=== PATIENT | female | born 1970 | race Caucasian/White ===

== ENCOUNTER 2017-09-03 14:47 | Emergency (ER) | payer SELFPAY ==
--- NOTE | 2017-09-03 16:07 | RAD ---
PA AND LATERAL VIEWS OF THE CHEST 09/04/17 HISTORY: Fall. Left sided chest pain. FINDINGS: The heart size is normal. The lungs are expanded without consolidation, pneumothoraces or pleural eff usions. IMPRESSION: No radiographic evidence of acute cardiopulmonary process. POS: [facility]
[2017-09-03] MEDS ORDERED: Adacel (T-DAP) 0.5 ML VIAL ONE (16:24)
[2017-09-03] MEDS ORDERED: Ibuprofen 200 MG TAB ONE (16:28)
--- NOTE | 2017-09-04 07:39 | RAD ---
THREE VIEWS OF THE LEFT WRIST 09/03/17 COMPARISON: None. HISTORY: Recent fall, pain in the wrist. FINDINGS: No widening of the scapholunate interval. No displaced fracture or evidence of dislocation is seen. IMPRESSION: No acute osseous abnormality. If symptoms persists, followup study in 7-10 days with dedicated scapho id views advised. POS: [facility]
== END 2017-09-03 16:57 | disposition home or self-care (01) ==
LOC: ERS 14:47
DX: S63.502A Unspecified sprain of left wrist, initial encounter (principal); S20.212A Contusion of left front wall of thorax, initial encounter; I11.0 Hypertensive heart disease with heart failure; I50.9 Heart failure, unspecified; E11.9 Type 2 diabetes mellitus without complications; E78.5 Hyperlipidemia, unspecified; Z87.891 Personal history of nicotine dependence; Z79.899 Other long term (current) drug therapy; Z79.84 Long term (current) use of oral hypoglycemic drugs; W18.30XA Fall on same level, unspecified, initial encounter
CPT/HCPCS: 71046; 90471; 90715

== ENCOUNTER 2017-11-09 14:29 | Outpatient (CLI) | payer SELFPAY ==
--- NOTE | 2017-11-26 12:09 | MMO ---
SCREENING MAMMOGRAPHY: 11/09/2017 HISTORY: Screening. COMPARISON: 03/16/2015 FINDINGS: The patient's mammogram is interpreted with the assistance of computer aided detection. The breast parenchyma is primarily fatty replaced. There is punctate, benign microcalcification pres ent on the left. No dominant mass, architectural distortion, or concerning microcalcification is not ed. There is a subtle area of skin thickening and increased linear parenchymal density in the superior ri ght breast on MLO imaging, unchanged. IMPRESSION: BI-RADS Category 2--Benign findings. Recommend annual screening mammography. POS: [facility]
== END 2017-11-09 14:30 | disposition home or self-care (01) ==
LOC: SCSMAMMO 14:29
PROVIDERS: ATTEND Nurse Practitioner Family
DX: Z12.31 Encounter for screening mammogram for malignant neoplasm of breast (principal)
CPT/HCPCS: 77067

== ENCOUNTER 2020-01-18 12:01 | Inpatient (IN) | payer SELFPAY ==
--- NOTE | 2020-01-18 12:44 | RAD ---
CHEST 1 VIEW: Date: 01/18/2020 INDICATION: History of chest pain. COMPARISON: Prior PA and lateral chest dated 09/03/2017. FINDINGS: Lungs are clear. Heart size is normal. No acute osseous abnormality is evident. IMPRESSION: No acute cardiopulmonary abnormality. POS: [facility]
[2020-01-18 12:56] LABS: #Basophils 0.1 thou/uL (0.0-0.2); #Eosinphils 0.2 thou/uL (0.0-0.7); #Lymphocytes 4.6 thou/uL (1.20-3.40); #Monocytes 0.9 thou/uL (0.11-0.59); #Neutrophils 4.6 thou/uL (1.40-6.50); %Basophils 1.2 % (0.0-1.0); %Eosinophils 1.9 % (0.0-10.0); %Lymphocytes 44.4 % (21.0-51.0); %Monocytes 8.4 % (0.0-10.0); %Neutrophils 44.2 % (42.0-75.0); Hemoglobin 14.5 g/dL (12.0-16.0); Mean Corpuscular HGB CONC 34.3 g/dL (32.0-36.0); Mean Corpuscular Hemoglobin 30.7 pg (27.0-31.0); Mean Corpuscular Volume 89.5 fL (78.0-98.0); Mean Platelet Volume 9.8 fL (7.4-10.4); Platelet Count 281 thou/uL (130-400); RBC Distribution Width 11.6 % (11.5-14.5); Red Blood Cell (RBC) Count 4.71 mill/uL (4.20-5.40); White Blood Cell (WBC) Count 10.4 thou/uL (4.8-10.8)
[2020-01-18] MEDS ORDERED: Nitroglycerin 0.4 MG TAB 1 EACH ONE (13:16)
[2020-01-18 14:37] LABS: CKMB 1.2 ng/mL (0-6.6)
[2020-01-18 15:06] LABS: ALT (SGPT) 25 U/L (8-55); AST (SGOT) 22 U/L (5-34); Albumin 4.8 g/dL (3.5-5.0); Alkaline Phosphatase 94 U/L (40-110); Anion Gap 21 mmol/L (10-20); BUN (Urea Nitrogen) 17 mg/dL (7.0-18.7); Bilirubin, Total 0.4 mg/dL (0.2-1.2); Calc. Creatinine Clearance 0 mL/min (70-130); Calcium 10.7 mg/dL (7.8-10.44); Carbon Dioxide 21 mmol/L (22-29); Chloride 102 mmol/L (98-107); Estimated GFR-MDRD 47; Globulin 3.2 g/dL (2.4-3.5); Glucose 216 mg/dL (70-105); Potassium 4.2 mmol/L (3.5-5.1); Sodium 140 mmol/L (136-145)
[2020-01-18] MEDS ORDERED: Aspirin Chewable 81 MG TAB ONE (15:13)
[2020-01-18] MEDS ORDERED: Nitroglycerin 2% Ointment 1 INCH/1 GM Packet ONE (15:13)
[2020-01-18] MEDS ORDERED: Dextrose 5% in Water 1,000 ML IV PRN (15:44)
[2020-01-18] MEDS ORDERED: Dextrose 50% Abboject 50 ML SYRINGE SLOW IVP PRN (15:44)
[2020-01-18] MEDS ORDERED: Calcium Carbonate 500 MG ChewTAB PO PRN (15:46)
[2020-01-18] MEDS ORDERED: Ondansetron PF 4 MG/2 ML Vial IVP PRN (15:46)
[2020-01-18] MEDS ORDERED: Ondansetron ODT 4 MG TAB PO PRN (15:46)
[2020-01-18 15:50] LABS: Troponin I 0.028 ng/mL (< 0.028)
[2020-01-18] MEDS ORDERED: Labetalol HCl 100 MG/20 ML VIAL SLOW IVP PRN (15:53)
[2020-01-18] MEDS ORDERED: cloNIDine 0.1 MG TAB PO PRN (15:53)
--- NOTE | 2020-01-18 15:56 | HP ---
PRIMARY CARE PHYSICIAN: [id number]. CHIEF COMPLAINT: Shortness of breath of 1 week with chest discomfort today. HISTORY OF PRESENT ILLNESS: The patient is a 49-year-old white female with diabetes mellitus type 2, hypertension with cardiomyopathy, presented to the emergency room with above complaints. Over the last 1 week, the patient developed gradual worsening shortness of breath to the extent that she gets short of breath on walking 2 to 3 steps. The shortness of breath was mainly present on exertion. She denies significant orthopnea or leg swelling. No paroxysmal nocturnal dyspnea reported. She denies recent travel, fever, or chills. No cough or sick contacts reported. Earlier today while she was shopping, she developed sudden onset of chest discomfort that was moderate in intensity, radiating to her left shoulder and jaw. She denies any associated nausea, vomiting, diaphoresis, palpitations, or syncope. The pain lasted for approximately 30 to 40 minutes. It resolved after nitroglycerin and aspirin in the emergency room. She is compliant with all of her medications. PAST MEDICAL HISTORY: 1. Diabetes mellitus type 2. 2. History of congestive heart failure. 3. Hypertension. 4. Moderate obesity. 5. Hyperlipidemia. PAST SURGICAL HISTORY: 1. Laparoscopic cholecystectomy. 2. I and D of the lip and back abscess. ALLERGIES: THE PATIENT IS ALLERGIC TO CODEINE. CURRENT HOME MEDICATIONS: The patient is unable to recall her medications. The family will bring accurate list of medication later today. SOCIAL HISTORY: The patient is a former smoker, quit more than 10 years ago. No alcohol or drug use. She lives with her family. FAMILY HISTORY: Positive for hypertension and diabetes in her father and congestive heart failure in her mother. REVIEW OF SYSTEMS: All other review of systems reviewed and were found negative. PHYSICAL EXAMINATION: VITAL SIGNS: In the emergency room, showed temperature 97.6, respirations 24, pulse of 82 with a blood pressure of 174/116 and O2 saturations 99% on room air. Her last blood pressure was 124/69. HEENT: Head, atraumatic and normocephalic. Sclerae anicteric. Moist mucous membranes. No oral lesion. NECK: Supple. No JVD appreciated. No carotid bruit. LUNGS: Clear to auscultation bilaterally. No wheezing, rales, or rhonchi. HEART: S1 and S2 present. Regular rate and rhythm. No rubs or gallops. No reproducible chest wall tenderness. ABDOMEN: Soft and obese. Bowel sounds present. No rebound or guarding. No costovertebral angle tenderness. EXTREMITIES: No edema or calf tenderness. NEUROLOGIC: Grossly nonfocal. Moves all 4 extremities. PSYCHIATRY: Alert, awake, and oriented x3. SKIN: Warm and dry. LYMPH NODES: No palpable lymph nodes in the neck. PERIPHERAL VASCULAR: Radial pulses were palpable bilaterally and equal. MUSCULOSKELETAL: No joint swelling or tenderness. LABORATORY FINDINGS: CBC showed WBC 10.4 with hemoglobin 14.5, hematocrit 42.2, and platelets of 281. D-dimer was negative. Chemistry showed sodium 140, potassium 4.2, chloride 102, bicarb 21, BUN 17, and creatinine 1.2. LFTs in normal range. IMAGING STUDIES: Chest x-ray by my review was negative for infiltrate or edema. EKG by my review showed sinus rhythm without significant ST-T wave changes. IMPRESSION: 1. Chest discomfort with exertional shortness of breath. 2. History of cardiomyopathy. 3. Diabetes mellitus type 2. 4. Chronic kidney disease, stage 3. 5. Hyperlipidemia. 6. Morbid obesity. 7. Former smoker. PLAN: The patient will be monitored on the telemetry unit. The patient had an echocardiogram in 2016 that showed normal left ventricular ejection fraction of 55% to 60% with normal diastolic dysfunction. There was [id number] mitral regurgitation. An echocardiogram and stress test will be obtained. The patient will be kept n.p.o. past midnight. D-dimer was negative. Radial pulses are equal bilaterally. Home medications will be verified. We will start her on sliding scale. Lifestyle modification was emphasized. Job ID: [id number]
[2020-01-18 19:28] LABS: Troponin I 0.054 ng/mL (< 0.028)
[2020-01-18 22:14] VITALS: BMI 44.4
[2020-01-18] MEDS: Carvedilol 6.25 MG TAB PO SCH (22:37)
[2020-01-18] MEDS: Famotidine 20 MG TAB PO SCH (22:37)
[2020-01-18] MEDS: Lisinopril 10 MG TAB PO SCH (22:38)
[2020-01-18] MEDS: NPH, Human Insulin Isophane 300 UNIT/3 ML VIAL SC SCH (22:40)
[2020-01-19] MEDS: Acetaminophen 325 MG TAB PO PRN ×3 (00:38→22:27)
[2020-01-19 09:13] LABS: Cardiac Risk 4.4 (Less than 4.5)
[2020-01-19 09:34] LABS: CKMB 1.5 ng/mL (0-6.6)
[2020-01-19] MEDS: Carvedilol 6.25 MG TAB PO SCH ×2 (09:52→17:11)
[2020-01-19] MEDS: Aspirin 325 mg Enteric Coated Tablet PO SCH (09:56)
[2020-01-19] MEDS: Famotidine 20 MG TAB PO SCH ×2 (09:56→21:19)
[2020-01-19] MEDS: Lisinopril 10 MG TAB PO SCH (15:12)
[2020-01-19] MEDS: NPH, Human Insulin Isophane 300 UNIT/3 ML VIAL SC SCH ×2 (15:12→21:20)
--- NOTE | 2020-01-19 15:29 | CON ---
DATE OF CONSULTATION: 01/19/2020 REASON FOR CONSULTATION: Chest pain and shortness of breath. HISTORY OF PRESENT ILLNESS: Ms. Castro is a very pleasant 49-year-old white female, who comes to the hospital for shortness of breath and chest pain. She states about a week ago, she started noticing shortness of breath with any exertion. She would climb up her regular flight of stairs, she have to stop in the middle to catch her breath. She has noticed her shortness of breath has become worse in the last few days. Yesterday, she started noticing chest tightness on top of the shortness of breath, she lays flat, she feels a lot more short of breath, she has to sit up to breathe better. She has a history of nonischemic systolic heart failure in the past. Most recent echocardiogram was done in 2015, at which point her EF was normal at 60%. She has not followed up with anyone since 2013 when she was following with Dr. [facility] as she says she lost her insurance and has been seen by [facility] in the last few years. PAST MEDICAL HISTORY: 1. Type 2 diabetes. 2. History of systolic and diastolic heart failure, nonischemic. 3. Hypertension. 4. Obesity. 5. Hyperlipidemia. SURGICAL HISTORY: 1. Laparoscopic cholecystectomy. 2. I and D for an abscess on her lip and her back. OUTPATIENT MEDICATIONS: 1. Multivitamins daily. 2. Calcium and vitamin D. 3. Carvedilol 6.25 b.i.d. 4. Atorvastatin 40 mg at bedtime. 5. Claritin. 6. Lisinopril 10 mg a day. 7. Lasix 40 mg a day. 8. Metformin 1000 mg b.i.d. 9. Pantoprazole 40 mg a day. ALLERGIES: CODEINE. SOCIAL HISTORY: Former smoker, but quit 10 years ago. No alcohol or drug use. FAMILY HISTORY: Hypertension and diabetes in father. Mother with heart failure. REVIEW OF SYSTEMS: A 12-point review of systems was done and was all negative unless stated in the history of present illness. PHYSICAL EXAMINATION: VITAL SIGNS: Temperature 97.4, pulse 76, respiratory rate 20, saturations 98% on room air, and blood pressure 113/53. GENERAL: Awake, alert, and oriented x3, in no distress. HEENT: Normocephalic and atraumatic. NECK: Supple. LUNGS: Clear. CARDIOVASCULAR: S1 and S2. No S3 or S4. No murmurs. ABDOMEN: Soft, positive bowel sounds. EXTREMITIES: Trace edema. SKIN: Warm and dry. LABORATORY DATA: Laboratory work was reviewed. CBC with a hemoglobin of 14, hematocrit of 42, white count of 10, and platelet count of 281. Coags, D-dimer was normal. Chemistry on admission, creatinine was 1.22 with GFR of 47, glucose was 216. Troponin was negative the first two and then it was indeterminate third and fourth time. Triglycerides of 227, cholesterol of 185, LDL of 98, HDL of 42. ASSESSMENT: 1. Unstable angina 2. Indeterminate troponin, up trending, likely NSTEMI. 3. History of nonischemic cardiomyopathy. PLAN: 1. Will get echo today and plan on [facility]. We spoke about risks and benefits, risks included but not limited to stroke,PA, , bleeding and need for blood transfusion, limb loss, organ loss. patient understands and verbalizes understanding of this and agrees to proceed. Conscious sedation discussed as well and agrees to this. 2. She does not seem particularly fluid overloaded. We would hold off on Lasix at this time. Thank you for letting us to participate in the care of your patient. We will follow. Job ID: [id number] [email or web address]
[2020-01-19] MEDS: Enoxaparin Sodium 40 MG/0.4 ML SYRINGE SC SCH (17:11)
[2020-01-19] MEDS: Insulin Regular 300 UNITS/3 ML VIAL SC PRN ×2 (17:12→21:22)
[2020-01-19] MEDS: Nitroglycerin 0.4 MG TAB (25 Tab Bottle) PO PRN (22:21)
[2020-01-20] MEDS: Nitroglycerin 0.4 MG TAB (25 Tab Bottle) PO PRN (05:18)
[2020-01-20] MEDS: Famotidine 20 MG TAB PO SCH ×2 (05:37→20:20)
[2020-01-20] MEDS: Acetaminophen 325 MG TAB PO PRN (05:37)
[2020-01-20] MEDS: Enoxaparin Sodium 40 MG/0.4 ML SYRINGE SC SCH (05:38)
[2020-01-20] MEDS: Lisinopril 10 MG TAB PO SCH (05:38)
[2020-01-20] MEDS: Aspirin 325 mg Enteric Coated Tablet PO SCH (05:38)
[2020-01-20] MEDS: Carvedilol 6.25 MG TAB PO SCH ×2 (05:38→17:28)
[2020-01-20] MEDS: NPH, Human Insulin Isophane 300 UNIT/3 ML VIAL SC SCH ×2 (05:38→20:20)
--- NOTE | 2020-01-20 09:01 | PDOC.HOSPP ---
- Subjective Encounter Date: 01/19/20 Encounter Time: 15:00 Subjective: Patient seen and examined for CP. SOB on mod exertion. Some CP earlier. No other complaints. No overnight events - Objective Vital Signs & Weight: Vital Signs (12 hours) Temp Pulse Resp BP BP BP Pulse Ox 01/20/20 07:11 98.0 F 70 12 114/56 L 96 01/20/20 05:38 113/60 01/20/20 04:49 96 01/20/20 03:29 97.5 F L 69 16 113/60 97 01/19/20 22:34 73 16 127/68 96 01/19/20 22:28 76 20 166/80 H 99 Weight Admit Weight 269 lb 9 oz Weight 266 lb 1.6 oz I&O: 01/19/20 01/20/20 01/21/20 06:59 06:59 06:59 Intake Total 120 1460 Output Total 1150 Balance 120 310 Result Diagrams: 01/18/20 12:20 01/18/20 12:20 Additional Labs: Accuchecks 01/20/20 01/19/20 01/19/20 05:57 20:41 16:43 POC Glucose 170 H 247 H 239 H 01/19/20 11:07 POC Glucose 143 H Microbiology 11/04/16 19:10 Venous blood - Right Arm Blood Culture - Preliminary NO GROWTH AT 48 HOURS 11/04/16 19:10 Venous blood - Left Hand Blood Culture - Preliminary NO GROWTH AT 48 HOURS Laboratory Tests 01/19/20 01/19/20 08:21 08:21 Troponin I 0.075 H Triglycerides 227 H Cholesterol 185 Radiology Reviewed by me: Yes (CXR - no infiltrate) EKG Reviewed by me: Yes (Tele SR) Hospitalist ROS - Review of Systems Respiratory: reports: SOB with excertion. denies: cough, dry, shortness of breath, hemoptysis, pleuritic pain, sputum, wheezing, other Gastrointestinal: denies: nausea, vomiting, abdominal pain, diarrhea, constipation, melena, hematochezia, other Genitourinary: denies: dysuria, frequency, incontinence, hematuria, retention, other - Medication Medications: Active Medications Generic Name Dose Route Start Last Admin Trade Name Freq PRN Reason Stop Dose Admin Acetaminophen 650 mg 01/18/20 15:46 01/20/20 05:37 Tylenol PO 650 mg Q4H PRN Administration Headache/Fever/Mild Pain (1-3) Aspirin 325 mg 01/19/20 09:00 01/20/20 05:38 Ecotrin PO 325 mg DAILY MARINE Administration Carvedilol 6.25 mg 01/19/20 17:00 01/20/20 05:38 Coreg PO 6.25 mg BID-WM MARINE Administration Enoxaparin Sodium 40 mg 01/19/20 09:00 01/20/20 05:38 Lovenox SC Not Given 0900 MARINE Famotidine 20 mg 01/18/20 21:00 01/20/20 05:37 Pepcid PO 20 mg BID MARINE Administration Insulin Human NPH 10 unit 01/18/20 21:00 01/20/20 05:38 Humulin N SC Not Given BID MARINE Insulin Human Regular 0 units 01/18/20 15:44 01/19/20 17:12 Humulin R SC 4 unit .MODERATE SLIDING SC PRN Administration Moderate Correctional Scale Insulin Human Regular 0 units 01/18/20 15:44 01/19/20 21:22 Humulin R SC 2 unit .BEDTIME SLIDING SC PRN Administration Bedtime Correctional Scale Lisinopril 10 mg 01/20/20 09:00 01/20/20 05:38 Zestril PO 10 mg DAILY [facility]INE Administration Nitroglycerin 0.4 mg 01/18/20 15:44 01/20/20 05:18 Nitrostat PO 0.4 mg Q5MIN PRN Administration Chest Pain - Exam General Appearance: NAD Heart: RRR, no gallops, no rubs, normal peripheral pulses Respiratory: no wheezes, no rales, no ronchi, normal chest expansion Gastrointestinal: soft, non-tender, non-distended, normal bowel sounds Extremities: no cyanosis, no clubbing Neurological: no new deficit Psychiatric: normal affect, A&O x 3 Hosp A/P - Plan DVT proph w/SCDs 1. Chest discomfort with exertional shortness of breath. 2. History of cardiomyopathy. 3. Diabetes mellitus type 2. 4. Chronic kidney disease, stage 3. 5. Hyperlipidemia. 6. Morbid obesity. 7. Former smoker. PLAN: Cardio input appreciated Await Echo D-dimer negative Cont Coreg/Lisinopril Counselled on lifestyle modification Cont sliding scale Cont other meds as above
[2020-01-20] MEDS ORDERED: Iopamidol 370 76% 100 ML VIAL ONE (09:26)
[2020-01-20] MEDS ORDERED: Iopamidol 370 76% 50 ML VIAL FS ONE (09:26)
[2020-01-20 10:53] LABS: Anion Gap 15 mmol/L (10-20); BUN (Urea Nitrogen) 15 mg/dL (7.0-18.7); Calc. Creatinine Clearance 146 mL/min (70-130); Calcium 9.8 mg/dL (7.8-10.44); Carbon Dioxide 27 mmol/L (22-29); Chloride 103 mmol/L (98-107); Estimated GFR-MDRD 67; Glucose 163 mg/dL (70-105); Potassium 4.6 mmol/L (3.5-5.1); Sodium 140 mmol/L (136-145)
--- NOTE | 2020-01-20 11:13 | PDOC.HOSPP ---
- Subjective Encounter Date: 01/20/20 Encounter Time: 10:00 Subjective: Patient seen and examined for CP. No new complaints. No overnight events - Objective Vital Signs & Weight: Vital Signs (12 hours) Temp Pulse Resp BP BP Pulse Ox 01/20/20 07:11 98.0 F 70 12 114/56 L 96 01/20/20 05:38 113/60 01/20/20 04:49 96 01/20/20 03:29 97.5 F L 69 16 113/60 97 Weight Admit Weight 269 lb 9 oz Weight 266 lb 1.6 oz I&O: 01/19/20 01/20/20 01/21/20 06:59 06:59 06:59 Intake Total 120 1460 Output Total 1150 Balance 120 310 Result Diagrams: 01/18/20 12:20 01/20/20 10:20 Additional Labs: Accuchecks 01/20/20 01/20/20 01/19/20 10:46 05:57 20:41 POC Glucose 167 H 170 H 247 H 01/19/20 01/19/20 16:43 11:07 POC Glucose 239 H 143 H EKG Reviewed by me: Yes (Tele SR) Hospitalist ROS - Review of Systems Respiratory: denies: cough, dry, shortness of breath, hemoptysis, SOB with excertion, pleuritic pain, sputum, wheezing, other Cardiovascular: denies: chest pain, palpitations, orthopnea, paroxysmal noc. dyspnea, edema, light headedness, other - Medication Medications: Active Medications Generic Name Dose Route Start Last Admin Trade Name Freq PRN Reason Stop Dose Admin Acetaminophen 650 mg 01/18/20 15:46 01/20/20 05:37 Tylenol PO 650 mg Q4H PRN Administration Headache/Fever/Mild Pain (1-3) Aspirin 325 mg 01/19/20 09:00 01/20/20 05:38 Ecotrin PO 325 mg DAILY MARINE Administration Carvedilol 6.25 mg 01/19/20 17:00 01/20/20 05:38 Coreg PO 6.25 mg BID-WM MARINE Administration Famotidine 20 mg 01/18/20 21:00 01/20/20 05:37 Pepcid PO 20 mg BID MARINE Administration Insulin Human NPH 10 unit 01/18/20 21:00 01/20/20 05:38 Humulin N SC Not Given BID MARINE Insulin Human Regular 0 units 01/18/20 15:44 01/19/20 17:12 Humulin R SC 4 unit .MODERATE SLIDING SC PRN Administration Moderate Correctional Scale Insulin Human Regular 0 units 01/18/20 15:44 01/19/20 21:22 Humulin R SC 2 unit .BEDTIME SLIDING SC PRN Administration Bedtime Correctional Scale Lisinopril 10 mg 01/20/20 09:00 01/20/20 05:38 Zestril PO 10 mg DAILY [facility]INE Administration Nitroglycerin 0.4 mg 01/18/20 15:44 01/20/20 05:18 Nitrostat PO 0.4 mg Q5MIN PRN Administration Chest Pain - Exam General Appearance: NAD Heart: RRR, no gallops Respiratory: no wheezes, no ronchi Gastrointestinal: non-tender, non-distended, normal bowel sounds Extremities: no cyanosis, no clubbing Neurological: no new deficit Psychiatric: normal affect, A&O x 3 Hosp A/P - Plan DVT proph w/lovenox, DVT proph w/SCDs 1. CP with exertional SOB. Suspected Unstable angina. 2. Chronic diastolic HF. 3. Diabetes mellitus type 2. 4. Chronic kidney disease, stage 3. 5. Hyperlipidemia. 6. Morbid obesity. 7. Former smoker. PLAN: Echo reviewed. Cont Coreg/Lisinopril Cont sliding scale Cont other meds as above Cath planned
[2020-01-20] MEDS ORDERED: Fentanyl 100 MCG/2 ML VIAL ONE (12:46)
[2020-01-20] MEDS ORDERED: Midazolam HCl 2 mg/2 ml Vial ONE (12:47)
[2020-01-20] MEDS ORDERED: Heparin 10,000 UNITS/1 ML VIAL ONE (13:13)
[2020-01-20] MEDS ORDERED: TICAGRELOR 90 MG TABLET ONE (13:14)
[2020-01-20] MEDS ORDERED: Sodium Chloride 0.9% 500 ML IV SCH (13:30)
[2020-01-20] MEDS: Insulin Regular 300 UNITS/3 ML VIAL SC PRN ×2 (17:31→20:20)
[2020-01-20] MEDS ORDERED: Atorvastatin Calcium 40 MG TAB PO SCH (21:00)
[2020-01-21 04:07] LABS: #Basophils 0.1 thou/uL (0.0-0.2); #Eosinphils 0.2 thou/uL (0.0-0.7); #Lymphocytes 3.7 thou/uL (1.20-3.40); #Monocytes 0.9 thou/uL (0.11-0.59); #Neutrophils 4.5 thou/uL (1.40-6.50); %Basophils 0.5 % (0.0-1.0); %Eosinophils 1.7 % (0.0-10.0); %Monocytes 9.4 % (0.0-10.0); %Neutrophils 48.4 % (42.0-75.0); Hemoglobin 12.9 g/dL (12.0-16.0); Mean Corpuscular HGB CONC 33.5 g/dL (32.0-36.0); Mean Corpuscular Hemoglobin 30.7 pg (27.0-31.0); Mean Corpuscular Volume 91.5 fL (78.0-98.0); Mean Platelet Volume 8.9 fL (7.4-10.4); Platelet Count 220 thou/uL (130-400); RBC Distribution Width 11.7 % (11.5-14.5); Red Blood Cell (RBC) Count 4.22 mill/uL (4.20-5.40); White Blood Cell (WBC) Count 9.3 thou/uL (4.8-10.8)
[2020-01-21 04:33] LABS: ALT (SGPT) 30 U/L (8-55); AST (SGOT) 23 U/L (5-34); Alkaline Phosphatase 81 U/L (40-110); Anion Gap 13 mmol/L (10-20); BUN (Urea Nitrogen) 13 mg/dL (7.0-18.7); Bilirubin, Total 0.5 mg/dL (0.2-1.2); Calc. Creatinine Clearance 160 mL/min (70-130); Calcium 9.4 mg/dL (7.8-10.44); Carbon Dioxide 23 mmol/L (22-29); Chloride 106 mmol/L (98-107); Estimated GFR-MDRD 74; Globulin 2.7 g/dL (2.4-3.5); Glucose 154 mg/dL (70-105); Potassium 4.3 mmol/L (3.5-5.1); Protein, Total 6.7 g/dL (6.0-8.3); Sodium 138 mmol/L (136-145)
[2020-01-21] MEDS: Insulin Regular 300 UNITS/3 ML VIAL SC PRN ×2 (06:00→11:31)
[2020-01-21] MEDS: Carvedilol 6.25 MG TAB PO SCH (08:33)
[2020-01-21] MEDS: Lisinopril 10 MG TAB PO SCH (08:34)
[2020-01-21] MEDS: Famotidine 20 MG TAB PO SCH (08:34)
[2020-01-21] MEDS: NPH, Human Insulin Isophane 300 UNIT/3 ML VIAL SC SCH (08:35)
[2020-01-21] MEDS ORDERED: Aspirin Chewable 81 MG TAB PO SCH (09:00)
[2020-01-21] MEDS ORDERED: Clopidogrel Bisulfate 75 MG TAB PO SCH (09:00)
[2020-01-21] MEDS ORDERED: Lisinopril 2.5 MG TAB PO SCH (09:00)
--- NOTE | 2020-01-21 10:06 | PDOC.CPN ---
- Subjective Date: 01/21/20 Time: 10:03 Interval history: Patient just returning from walk with rehab. Walked entire floor around atrium without pain/SOB or dizziness. States dramatic improvement from yesterday. No complaints. Had 7 beats asymptomatic NSVT last night. - Review of Systems Respiratory: denies: cough, congestion, shortness of breath, exercise intolerance Cardiovascular: denies: chest pain, palpitation, edema, paroxysmal nocturnal dyspnea, orthopnea Gastrointestinal: denies: nausea, vomiting, diarrhea, constipation, abd pain, GI bleeding Musculoskeletal: denies: pain, tenderness, stiffness, swelling, arthritis/ arthralgias Neurological: denies: numbness, syncope, seizure, weakness - Objective Allergies/Adverse Reactions: Allergies Allergy/AdvReac Type Severity Reaction Status Date / Time codeine Allergy Stomach Verified 11/21/19 23:37 Ache lotion Allergy Uncoded 01/18/20 22:10 Visit Medications: Current Medications Acetaminophen (Tylenol) 650 mg PO Q4H PRN PRN Reason: Headache/Fever/Mild Pain (1-3) Last Admin: 01/20/20 05:37 Dose: 650 mg Aspirin (Aspirin Chewable) 81 mg PO DAILY [facility] Last Admin: 01/21/20 08:33 Dose: 81 mg Atorvastatin Calcium (Lipitor) 40 mg PO HS [facility] Last Admin: 01/20/20 20:20 Dose: 40 mg Calcium Carbonate (Tums) 1,000 mg PO Q4H PRN PRN Reason: Heartburn or Indigestion Carvedilol (Coreg) 6.25 mg PO BID-WM [facility] Last Admin: 01/21/20 08:33 Dose: 6.25 mg Clonidine (Catapres) 0.1 mg PO Q4H PRN PRN Reason: SBP Greater Than 180 Clopidogrel Bisulfate (Plavix) 75 mg PO DAILY [facility] Last Admin: 01/21/20 08:34 Dose: 75 mg Dextrose/Water (Dextrose 50%) 25 gm SLOW IVP PRN PRN PRN Reason: Hypoglycemia Famotidine (Pepcid) 20 mg PO BID [facility] Last Admin: 01/21/20 08:34 Dose: 20 mg Glucagon (Glucagon) 1 mg IM PRN PRN PRN Reason: Hypoglycemia Dextrose/Water (D5w) 1,000 mls @ 0 mls/hr IV .Q0M PRN PRN Reason: Hypoglycemia Insulin Human NPH (Humulin N) 10 unit SC BID [facility] Last Admin: 01/21/20 08:35 Dose: 10 unit Insulin Human Regular (Humulin R) 0 units SC .MODERATE SLIDING SC PRN PRN Reason: Moderate Correctional Scale Last Admin: 01/21/20 06:00 Dose: 2 unit Insulin Human Regular (Humulin R) 0 units SC .BEDTIME SLIDING SC PRN PRN Reason: Bedtime Correctional Scale Last Admin: 01/20/20 20:20 Dose: 2 unit Labetalol HCl (Normodyne) 10 mg SLOW IVP Q4H PRN PRN Reason: Systolic BP > 180 Lisinopril (Zestril) 10 mg PO DAILY [facility] Last Admin: 01/21/20 08:34 Dose: 10 mg Nitroglycerin (Nitrostat) 0.4 mg PO Q5MIN PRN PRN Reason: Chest Pain Last Admin: 01/20/20 05:18 Dose: 0.4 mg Ondansetron HCl (Zofran Odt) 4 mg PO Q6H PRN PRN Reason: Nausea/Vomiting Ondansetron HCl (Zofran) 4 mg IVP Q6H PRN PRN Reason: Nausea/Vomiting Sodium Chloride (Flush - Normal Saline) 10 ml IVF PRN PRN PRN Reason: Saline Flush Last Admin: 01/20/20 20:21 Dose: 10 ml Vital Signs & Weight: Vital Signs Temp Pulse Resp BP Pulse Ox 01/21/20 07:38 97.8 F 78 16 132/63 97 01/21/20 03:17 97.7 F 75 18 128/60 98 01/21/20 01:59 96 Admit Weight 269 lb 9 oz Weight 265 lb 3.2 oz - Physical Exam General: alert & oriented x3, appears well HEENT: mucus membranes moist, EOMI Neck: supple neck, no bruit Cardiac: no murmur, regular rate Lungs: normal breath sounds, no wheeze, rales, rhonchi Neuro: grossly intact Abdomen: unremarkable, non-tender Extremities: no cyanosis, no edema Skin: clear - Labs Result Diagrams: 01/21/20 03:48 01/21/20 03:48 Troponin/CKMB CK-MB (CK-2) 1.5 ng/mL (0-6.6) 05/21/20 08:21 Troponin I 0.075 ng/mL (< 0.028) H 01/19/20 08:21 - Assessment/Plan Assessment/Plan: 1. UA 2. CAD s/p PCI to mid LAD 3. NSVT Patient with recent PCI to LAD. Symptomatically improved. Had 7 beats NSVT overnight. Asymptomatic. Normal EF and on bblocker. Probable reperfusion. Discussed with RG. Garcia for discharge today. Will f/u in 2-3 weeks in office.
[2020-01-21 11:39] VITALS: BP 122/58; TEMP 98
--- NOTE | 2020-01-22 09:11 | DIS ---
DATE OF ADMISSION: 01/18/2020 DATE OF DISCHARGE: 01/21/2020 DISCHARGE DISPOSITION: Home. FOLLOWUP: 1. Follow up with [facility] clinic in 1 week. 2. Follow up with Dr. Pitts in 2 weeks. ALLERGIES: NO KNOWN DRUG ALLERGIES. DISCHARGE MEDICATIONS: 1. Plavix 75 mg daily. 2. Aspirin 81 mg daily. 3. Sublingual nitroglycerin as needed. 4. Metformin to be restarted after 48 hours of cardiac catheterization. All other home medications were left unchanged. The patient was seen and examined on the day of discharge. Denies any new complaints. No chest pain, shortness of breath, or palpitations reported. BRIEF HOSPITAL COURSE: The patient is a 49-year-old female with diabetes mellitus type 2, hypertension, and hyperlipidemia, presented to the hospital with shortness of breath of 1-week duration. Workup was consistent with unstable angina. Cardiac catheterization was performed that showed LAD lesion requiring stent placement. Official cath report is pending at the time of discharge. Echocardiogram showed left ventricular ejection fraction of 60% to 65% with diastolic dysfunction, mild mitral regurgitation, mild aortic regurgitation, mild tricuspid regurgitation. She had 7 beats of nonsustained ventricular tachycardia last night. She was asymptomatic at that time. The patient has been evaluated by Cardiology and was recommended to continue beta blockers. The NSVT was probably due to reperfusion. FINAL DIAGNOSES: 1. Chest discomfort secondary to unstable angina. 2. Coronary artery disease status post LAD stent placement. 3. Chronic diastolic heart failure. 4. Diabetes mellitus type 2. 5. Chronic kidney disease, stage 3. 6. Hyperlipidemia. 7. Morbid obesity with a BMI of 44.1. 8. Former smoker. 9. The patient understands the above plan of care. Job ID: [id number]
--- NOTE | 2020-01-24 09:14 | PQF ---
Judy Castro MALIK MD [id number] CLINICAL DOCUMENTATION CLARIFICATION FORM: POST DISCHARGE Addendum to original discharge summary date: ____ Late entry note date: __ DATE: 01/21/2020 ATTN: DERECK AMADOR MD Please exercise your independent, professional judgment in responding to the clarification form. Clinical indicators are provided on the bottom of this form for your review Please check appropriate box(s) to clarify if the following diagnosis has been ruled in or ruled out: NSTEMI - likely [ x ] Ruled in diagnosis [ ] Continue to treat [ x ] Resolved [ ] Ruled out diagnosis [ ] Cannot rule out diagnosis [ ] Other diagnosis [ ] Unable to determine For continuity of documentation, please document condition throughout progress notes and discharge summary. Thank You. CLINICAL INDICATORS - SIGNS / SYMPTOMS / LABS - Indeterminate troponin, up trading, likely NSTEMI- Consultation report, 01/18 , Gisselle El MD - Chest discomfort secondary to unstable angina- DS, 01/20, DERECK AMADOR MD - Left ventricular ejection fraction of 60% to 65% with diastolic dysfunction-DS , 01/20, DERECK AMADOR MD - NSVT was probably due to reperfusion- DS, 01/20, DERECK AMADOR MD RISK FACTORS - CAD-DS, 01/20, DERECK AMADOR MD - Chronic artery heart failure- DS, 01/20, DERECK AMADOR MD - Hypertension-DS, 01/20, DERECK AMADOR MD TREATMENTS - Aspirin.PO- MAR, 01/17 (This form is maintained as a part of the permanent medical record) 2014 [employer]. All Rights Reserved [employer] [email or web address]
--- NOTE | 2020-01-27 23:28 | EKG ---
Test Reason : POST STENT Blood Pressure : / mmHG Vent. Rate : 061 BPM Atrial Rate : 061 BPM P-R Int : 188 ms QRS Dur : 090 ms QT Int : 444 ms P-R-T Axes : 044 018 110 degrees QTc Int : 446 ms Normal sinus rhythm T wave abnormality, consider anterior ischemia Abnormal ECG When compared with ECG of 18-JAN-2020 12:11, T wave inversion now evident in Anterior leads Confirmed by Miriam PATRICIA ([id number]) on 01/27/2020 11:27:49 PM Referred By: LEYDA Confirmed By:Miriam PATRICIA
== END 2020-01-21 14:00 | disposition home or self-care (01) | DRG 247 ==
LOC: ERS 12:01 → 2NO 15:01 → OBSVTOIN 15:01
PROVIDERS: ADMIT Internal Medicine; ATTEND Internal Medicine
PROC: 027034Z Dilation of Coronary Artery, One Artery with Drug-eluting Intraluminal Device, Percutaneous Approach (ICD-10-PCS; principal; 2020-01-20)
PROC: 4A023N7 Measurement of Cardiac Sampling and Pressure, Left Heart, Percutaneous Approach (ICD-10-PCS; 2020-01-20)
PROC: B2111ZZ Fluoroscopy of Multiple Coronary Arteries using Low Osmolar Contrast (ICD-10-PCS; 2020-01-20)
PROC: B2151ZZ Fluoroscopy of Left Heart using Low Osmolar Contrast (ICD-10-PCS; 2020-01-20)
DX: I21.4 Non-ST elevation (NSTEMI) myocardial infarction (principal); I47.1 Supraventricular tachycardia; I50.32 Chronic diastolic (congestive) heart failure; I13.0 Hypertensive heart and chronic kidney disease with heart failure and stage 1 through stage 4 chronic kidney disease, or unspecified chronic kidney disease; Z68.41 Body mass index [BMI] 40.0-44.9, adult; I42.8 Other cardiomyopathies; I25.110 Atherosclerotic heart disease of native coronary artery with unstable angina pectoris; E11.9 Type 2 diabetes mellitus without complications; N18.3 Chronic kidney disease, stage 3 (moderate); E66.01 Morbid (severe) obesity due to excess calories; E78.5 Hyperlipidemia, unspecified; E78.00 Pure hypercholesterolemia, unspecified; I08.3 Combined rheumatic disorders of mitral, aortic and tricuspid valves; Z87.891 Personal history of nicotine dependence; Z90.49 Acquired absence of other specified parts of digestive tract; Z88.5 Allergy status to narcotic agent; Z88.8 Allergy status to other drugs, medicaments and biological substances
CPT/HCPCS: 36415; 36416; 71045; 80048; 80053; 80061; 82553; 83690; 83880; 84484; 85025; 85347; 85379; 92928; 93005; 93010; 93306; 93458; 93798; 94760; 99152; 99153; C1760; C1769; C1874; C9600; J1644; J1815; J2250; J3010; Q9967

== ENCOUNTER 2020-05-02 08:23 | Emergency (ER) | payer SELFPAY | END 2020-05-02 09:35 | disposition home or self-care (01) | LOC: ERS 08:23 | DX: L02.31 Cutaneous abscess of buttock (principal); I11.0 Hypertensive heart disease with heart failure; I50.9 Heart failure, unspecified; E11.9 Type 2 diabetes mellitus without complications; E78.5 Hyperlipidemia, unspecified; E78.00 Pure hypercholesterolemia, unspecified; Z87.891 Personal history of nicotine dependence | CPT/HCPCS: 99283 ==

== ENCOUNTER 2021-01-05 13:07 | Observation (INO) | payer SELFPAY ==
[2021-01-05 13:34] LABS: #Basophils 0.1 thou/uL (0.0-0.2); #Eosinphils 0.2 thou/uL (0.0-0.7); #Lymphocytes 3.8 thou/uL (1.20-3.40); #Monocytes 1.1 thou/uL (0.11-0.59); #Neutrophils 6.9 thou/uL (1.40-6.50); %Basophils 0.9 % (0.0-1.0); %Eosinophils 1.4 % (0.0-10.0); %Monocytes 9.3 % (0.0-10.0); %Neutrophils 57.4 % (42.0-75.0); Mean Corpuscular HGB CONC 33.5 g/dL (32.0-36.0); Mean Corpuscular Hemoglobin 30.3 pg (27.0-31.0); Mean Corpuscular Volume 90.5 fL (78.0-98.0); Platelet Count 248 thou/uL (130-400); RBC Distribution Width 11.7 % (11.5-14.5); White Blood Cell (WBC) Count 12.1 thou/uL (4.8-10.8)
[2021-01-05 13:49] LABS: ALT (SGPT) 44 U/L (8-55); AST (SGOT) 53 U/L (5-34); Albumin 4.3 g/dL (3.5-5.0); Alkaline Phosphatase 106 U/L (40-110); Anion Gap 19 mmol/L (10-20); BUN (Urea Nitrogen) 21 mg/dL (7.0-18.7); Bilirubin, Total 0.5 mg/dL (0.2-1.2); Calc. Creatinine Clearance 0 mL/min (70-130); Calcium 10.8 mg/dL (7.8-10.44); Carbon Dioxide 21 mmol/L (22-29); Chloride 101 mmol/L (98-107); Globulin 3.1 g/dL (2.4-3.5); Glucose 285 mg/dL (70-105); Lipase 41 U/L (8-78); Protein, Total 7.4 g/dL (6.0-8.3); Sodium 136 mmol/L (136-145)
[2021-01-05] MEDS ORDERED: Aspirin Chewable 81 MG TAB ONE (16:17)
[2021-01-05 16:31] LABS: Bilirubin Negative (Negative); Blood, Urine Negative (Negative); Clarity Clear (Clear); Glucose, Urine (Dipstick) Normal (Negative); Ketone, Urine Trace mg/dL (Negative); Leukocyte Negative Leu/uL (Negative); Nitrite Negative (Negative); Protein, Urine (Dipstick) Negative (Neg-Trace); Urobilinogen Normal mg/dL (Less than 2)
[2021-01-05 17:21] LABS: Troponin I 0.011 ng/mL (< 0.028)
[2021-01-05] MEDS ORDERED: Acetaminophen 325 MG TAB PO PRN (18:08)
[2021-01-05] MEDS ORDERED: Nitroglycerin 0.4 MG TAB (25 Tab Bottle) SL PRN (18:08)
[2021-01-05] MEDS ORDERED: Ondansetron PF 4 MG/2 ML Vial IVP PRN (18:08)
[2021-01-05] MEDS ORDERED: Dextrose 5% in Water 1,000 ML IV PRN (19:02)
[2021-01-05] MEDS ORDERED: Dextrose 50% Abboject 50 ML SYRINGE SLOW IVP PRN (19:02)
[2021-01-05 19:48] LABS: Troponin I Less than 0.010 ng/mL (< 0.028)
[2021-01-05] MEDS ORDERED: Lisinopril 10 MG TAB PO SCH (21:30)
[2021-01-05] MEDS ORDERED: Carvedilol 6.25 MG TAB PO SCH (21:45)
[2021-01-05] MEDS: HumuLIN 70/30 (300 UNITS/3 ML VIAL) SC SCH (22:07)
[2021-01-05] MEDS ORDERED: Lisinopril 10 MG TAB ONE (22:11)
[2021-01-05] MEDS: Atorvastatin Calcium 40 MG TAB PO SCH (22:15)
[2021-01-05] MEDS: Calcium Carbonate 600 MG + Vit D TAB PO SCH (22:15)
[2021-01-05] MEDS: Heparin 5,000 UNITS/ML VIAL SC SCH (22:15)
[2021-01-05] MEDS ORDERED: Acetaminophen 325 MG TAB ONE (23:45)
[2021-01-06 02:31] LABS: SARS-CoV-2 NAA Rapid Test Not Detected (NotDetected)
[2021-01-06 06:51] LABS: #Basophils 0.1 thou/uL (0.0-0.2); #Eosinphils 0.2 thou/uL (0.0-0.7); #Lymphocytes 3.7 thou/uL (1.20-3.40); #Neutrophils 3.5 thou/uL (1.40-6.50); %Basophils 0.7 % (0.0-1.0); %Eosinophils 2.2 % (0.0-10.0); %Lymphocytes 44.3 % (21.0-51.0); %Monocytes 11.4 % (0.0-10.0); %Neutrophils 41.4 % (42.0-75.0); Hemoglobin 12.5 g/dL (12.0-16.0); Mean Corpuscular HGB CONC 33.3 g/dL (32.0-36.0); Mean Corpuscular Hemoglobin 30.3 pg (27.0-31.0); Mean Corpuscular Volume 90.9 fL (78.0-98.0); Mean Platelet Volume 9.7 fL (7.4-10.4); Platelet Count 197 thou/uL (130-400); RBC Distribution Width 11.7 % (11.5-14.5); Red Blood Cell (RBC) Count 4.12 mill/uL (4.20-5.40); White Blood Cell (WBC) Count 8.4 thou/uL (4.8-10.8)
[2021-01-06 06:53] LABS: Hemoglobin A1c 10.6 % (4.0-6.0)
[2021-01-06 07:04] LABS: Anion Gap 14 mmol/L (10-20); BUN (Urea Nitrogen) 22 mg/dL (7.0-18.7); Calc. Creatinine Clearance 127 mL/min (70-130); Calcium 10.2 mg/dL (7.8-10.44); Carbon Dioxide 25 mmol/L (22-29); Cardiac Risk 3.8 (Less than 4.5); Chloride 102 mmol/L (98-107); Cholesterol 141 mg/dl (< 200 Desired); Glucose 324 mg/dL (70-105); HDL Cholesterol 37 mg/dL (>60 Neg Risk); LDL Cholesterol, Calculated 58 mg/dL; Sodium 137 mmol/L (136-145); Triglycerides 231 mg/dL (Less than 150)
[2021-01-06] MEDS ORDERED: Lisinopril 10 MG TAB PO SCH ×2 (09:00→21:00)
[2021-01-06] MEDS ORDERED: Aspirin Chewable 81 MG TAB PO SCH (09:00)
[2021-01-06] MEDS: Aspirin Chewable 81 MG TAB PO SCH (10:10)
[2021-01-06] MEDS: Loratadine 10 MG TAB PO SCH (10:10)
[2021-01-06] MEDS: Carvedilol 6.25 MG TAB PO SCH ×2 (10:10→18:04)
[2021-01-06] MEDS: Furosemide 40 MG TAB PO SCH (10:10)
[2021-01-06] MEDS: Clopidogrel Bisulfate 75 MG TAB PO SCH (10:10)
[2021-01-06] MEDS ORDERED: Insulin Regular 300 UNITS/3 ML VIAL ONE (10:19)
[2021-01-06] MEDS ORDERED: Heparin 10,000 UNITS/ 10 ML VIAL ONE ×2 (10:23→10:58)
[2021-01-06] MEDS: HumuLIN 70/30 (300 UNITS/3 ML VIAL) SC SCH ×2 (10:37→22:02)
[2021-01-06] MEDS: Heparin 5,000 UNITS/ML VIAL SC SCH ×3 (12:10→21:43)
[2021-01-06 13:01] VITALS: BMI 47.0
[2021-01-06] MEDS: HumaLOG 300 UNITS/3 ML VIAL SC PRN (18:04)
[2021-01-06] MEDS: Atorvastatin Calcium 40 MG TAB PO SCH (21:43)
[2021-01-06] MEDS: Calcium Carbonate 600 MG + Vit D TAB PO SCH (21:43)
[2021-01-06] MEDS: Metoclopramide HCl 10 MG/2 ML VIAL IVP SCH (21:45)
[2021-01-07] MEDS: HumaLOG 300 UNITS/3 ML VIAL SC PRN (07:18)
[2021-01-07 09:07] VITALS: TEMP 97.7
[2021-01-07] MEDS: Clopidogrel Bisulfate 75 MG TAB PO SCH (10:53)
[2021-01-07] MEDS: Furosemide 40 MG TAB PO SCH (10:53)
[2021-01-07] MEDS: Carvedilol 6.25 MG TAB PO SCH (10:53)
[2021-01-07] MEDS: Aspirin Chewable 81 MG TAB PO SCH (10:53)
[2021-01-07] MEDS: Metoclopramide HCl 10 MG/2 ML VIAL IVP SCH (10:54)
[2021-01-07] MEDS: Loratadine 10 MG TAB PO SCH (10:54)
[2021-01-07] MEDS: HumuLIN 70/30 (300 UNITS/3 ML VIAL) SC SCH (10:57)
[2021-01-07] MEDS: Heparin 5,000 UNITS/ML VIAL SC SCH (10:57)
[2021-01-07 12:39] VITALS: BP 159/68
== END 2021-01-07 13:16 | disposition home or self-care (01) ==
LOC: ERS 13:07 → ERHOLD 16:27 → 2SW 01-06 12:05
PROVIDERS: ADMIT Family Medicine; ATTEND Internal Medicine
DX: R10.13 Epigastric pain (principal); R07.89 Other chest pain; I25.10 Atherosclerotic heart disease of native coronary artery without angina pectoris; I13.0 Hypertensive heart and chronic kidney disease with heart failure and stage 1 through stage 4 chronic kidney disease, or unspecified chronic kidney disease; E11.22 Type 2 diabetes mellitus with diabetic chronic kidney disease; N18.2 Chronic kidney disease, stage 2 (mild); I50.30 Unspecified diastolic (congestive) heart failure; E78.5 Hyperlipidemia, unspecified; K21.9 Gastro-esophageal reflux disease without esophagitis; I08.1 Rheumatic disorders of both mitral and tricuspid valves; E66.01 Morbid (severe) obesity due to excess calories; Z68.42 Body mass index [BMI] 45.0-49.9, adult; Z79.02 Long term (current) use of antithrombotics/antiplatelets; Z79.82 Long term (current) use of aspirin; Z79.84 Long term (current) use of oral hypoglycemic drugs; Z79.899 Other long term (current) drug therapy; Z88.5 Allergy status to narcotic agent; Z91.048 Other nonmedicinal substance allergy status; Z95.5 Presence of coronary angioplasty implant and graft; Z20.822 Contact with and (suspected) exposure to COVID-19
CPT/HCPCS: 0240U; 36415; 36416; 71045; 80048; 80053; 80061; 81003; 83036; 83690; 83880; 84484; 85025; 87635; 93005; 93306; 96372; 96374; 96376; G0378; J1644; J1815; J2765; U0003; U0005

== ENCOUNTER 2022-01-24 07:30 | Emergency (ER) | payer SELFPAY ==
[2022-01-24] MEDS ORDERED: Aspirin Chewable 81 MG TAB ONE ×2 (07:48→07:50)
[2022-01-24 07:55] LABS: #Eosinphils 0.2 thou/uL (0.0-0.7); #Lymphocytes 3.9 thou/uL (1.20-3.40); #Monocytes 0.8 thou/uL (0.11-0.59); #Neutrophils 3.9 thou/uL (1.40-6.50); %Basophils 0.5 % (0.0-1.0); %Eosinophils 2.5 % (0.0-10.0); %Lymphocytes 44.3 % (21.0-51.0); %Monocytes 8.7 % (0.0-10.0); %Neutrophils 44.1 % (42.0-75.0); Hemoglobin 12.1 g/dL (12.0-16.0); Mean Corpuscular HGB CONC 34.2 g/dL (32.0-36.0); Mean Corpuscular Hemoglobin 30.8 pg (27.0-31.0); Mean Corpuscular Volume 90.1 fL (78.0-98.0); Mean Platelet Volume 9.7 fL (7.4-10.4); Platelet Count 183 thou/uL (130-400); RBC Distribution Width 11.9 % (11.5-14.5); Red Blood Cell (RBC) Count 3.91 mill/uL (4.20-5.40); White Blood Cell (WBC) Count 8.8 thou/uL (4.8-10.8)
[2022-01-24 08:16] LABS: ALT (SGPT) 19 U/L (8-55); AST (SGOT) 20 U/L (5-34); Albumin 3.9 g/dL (3.5-5.0); Alkaline Phosphatase 90 U/L (40-110); Anion Gap 14 mmol/L (10-20); BUN (Urea Nitrogen) 16 mg/dL (7.0-18.7); Bilirubin, Total 0.3 mg/dL (0.2-1.2); Calc. Creatinine Clearance 0 mL/min (70-130); Calcium 9.5 mg/dL (7.8-10.44); Carbon Dioxide 25 mmol/L (22-29); Chloride 105 mmol/L (98-107); Globulin 2.8 g/dL (2.4-3.5); Glucose 191 mg/dL (70-105); Magnesium 1.5 mg/dL (1.6-2.6); Protein, Total 6.7 g/dL (6.0-8.3); Sodium 140 mmol/L (136-145)
[2022-01-24] MEDS ORDERED: Magnesium 2 GM/50 ML(in water) 2 GM in Premix Bag 1 BAG IVPB SCH (09:30)
== END 2022-01-24 11:57 | disposition home or self-care (01) ==
LOC: ERS 07:30
DX: R06.02 Shortness of breath (principal); R07.89 Other chest pain; E83.42 Hypomagnesemia; I11.0 Hypertensive heart disease with heart failure; I50.9 Heart failure, unspecified; E11.9 Type 2 diabetes mellitus without complications; E78.5 Hyperlipidemia, unspecified; E78.00 Pure hypercholesterolemia, unspecified; K21.9 Gastro-esophageal reflux disease without esophagitis; Z87.891 Personal history of nicotine dependence; Z79.82 Long term (current) use of aspirin; Z79.4 Long term (current) use of insulin; Z79.899 Other long term (current) drug therapy
CPT/HCPCS: 36415; 71045; 80053; 83735; 83880; 84484; 85025; 93005; 94640; 96365; J3475; J7620

== ENCOUNTER 2022-06-15 13:55 | Emergency (ER) | payer SELFPAY | END 2022-06-15 16:30 | disposition home or self-care (01) | LOC: ERS 13:55 | DX: L02.413 Cutaneous abscess of right upper limb (principal); E11.9 Type 2 diabetes mellitus without complications; I11.0 Hypertensive heart disease with heart failure; I50.9 Heart failure, unspecified; K21.9 Gastro-esophageal reflux disease without esophagitis; E78.00 Pure hypercholesterolemia, unspecified; Z87.891 Personal history of nicotine dependence; Z79.4 Long term (current) use of insulin; Z79.84 Long term (current) use of oral hypoglycemic drugs; Z79.899 Other long term (current) drug therapy; Z79.82 Long term (current) use of aspirin | CPT/HCPCS: 10060 ==

== ENCOUNTER 2022-09-06 04:14 | Observation (INO) | payer SELFPAY ==
[2022-09-06] MEDS ORDERED: Ondansetron PF 4 MG/2 ML Vial ONE (04:40)
[2022-09-06] MEDS ORDERED: Morphine 4 MG/ML VIAL ONE (04:40)
[2022-09-06 05:17] LABS: Hemoglobin 10.6 g/dL (12.0-16.0); Mean Corpuscular HGB CONC 33.9 g/dL (32.0-36.0); Mean Corpuscular Hemoglobin 29.4 pg (27.0-31.0); Mean Corpuscular Volume 86.6 fl (78.0-98.0); Platelet Count 226 10x3/uL (130-400); RBC Distribution Width 11.7 % (11.5-14.5); Red Blood Cell (RBC) Count 3.61 mill/uL (4.20-5.40); White Blood Cell (WBC) Count 7.8 10x3/uL (4.8-10.8)
[2022-09-06 05:36] LABS: ALT (SGPT) 38 U/L (8-55); AST (SGOT) 45 U/L (5-34); Albumin 3.8 g/dL (3.5-5.0); Alkaline Phosphatase 82 U/L (40-110); Anion Gap 13 mmol/L (10-20); BUN (Urea Nitrogen) 19 mg/dL (9.8-20.1); Bilirubin, Total 0.2 mg/dL (0.2-1.2); Calc. Creatinine Clearance 0 mL/min (70-130); Calcium 9.4 mg/dL (7.8-10.44); Carbon Dioxide 22 mmol/L (22-29); Chloride 102 mmol/L (98-107); Estimated GFR 78; Globulin 2.3 g/dL (2.4-3.5); Glucose 263 mg/dL (70-105); Lipase 29 U/L (8-78); Magnesium 1.6 mg/dL (1.6-2.6); Potassium 4.3 mmol/L (3.5-5.1); Protein, Total 6.1 g/dL (6.0-8.3); Sodium 133 mmol/L (136-145)
[2022-09-06 05:46] LABS: Eosinophils 1 % (0-10); Lymphocytes 55 % (21-51); MDiff Complete? YES; Monocytes 5 % (0-10); Neutrophil 39 % (42-75); Platelet Morphology Comment Appears Adequate; RBC Morphology Normal
[2022-09-06 06:59] LABS: Bacteria/HPF None Seen HPF (None Seen); Bilirubin Negative (Negative); Blood, Urine Negative (Negative); Calcium Oxalate Crystals 3+ HPF (None Seen); Clarity Clear (Clear); Glucose, Urine (Dipstick) 300 mg/dL (Negative); Ketone, Urine Negative (Negative); Leukocyte 250 Leu/uL (Negative); Nitrite Negative (Negative); Protein, Urine (Dipstick) 10 mg/dL (Neg-Trace); RBC/HPF 0-3 HPF (0-3); Specific Gravity, Urine 1.023 (1.002-1.036); Squamous Epithelial 0-3 HPF (0-3); Urobilinogen Normal mg/dL (Less than 2); WBC/HPF 21-50 HPF (0-3); pH, Urine 5.5 (5.0-9.0)
[2022-09-06] MEDS ORDERED: Morphine 2 MG/ML VIAL ONE (09:41)
[2022-09-06] MEDS ORDERED: Nitroglycerin 0.4 MG TAB (25 Tab Bottle) SL PRN (09:44)
[2022-09-06] MEDS ORDERED: Electrolyte Replacement Protocol 1 EACH FS SCH (09:45)
[2022-09-06] MEDS ORDERED: Morphine 2 MG/ML VIAL SLOW IVP PRN (09:45)
[2022-09-06] MEDS ORDERED: Pantoprazole 40 MG VIAL IVP SCH (09:45)
[2022-09-06] MEDS ORDERED: Ondansetron PF 4 MG/2 ML Vial IVP PRN (09:46)
[2022-09-06] MEDS ORDERED: Acetaminophen 325 MG TAB PO PRN (09:46)
[2022-09-06] MEDS ORDERED: Ondansetron ODT 4 MG TAB PO PRN (09:46)
[2022-09-06] MEDS ORDERED: HumaLOG 300 UNITS/3 ML VIAL SC PRN (09:53)
[2022-09-06] MEDS ORDERED: Dextrose 50% Abboject 50 ML SYRINGE SLOW IVP PRN (09:53)
[2022-09-06] MEDS ORDERED: Dextrose 5% in Water 1,000 ML IV PRN (09:53)
[2022-09-06] MEDS ORDERED: Aspirin Chewable 81 MG TAB PO SCH (10:00)
[2022-09-06] MEDS ORDERED: Pantoprazole 40 MG VIAL ONE (10:51)
[2022-09-06] MEDS ORDERED: Aspirin Chewable 81 MG TAB ONE (10:51)
[2022-09-06] MEDS ORDERED: Electrolyte Replacement Protocol FS PRN (11:00)
[2022-09-06] MEDS ORDERED: Magnesium 2 GM/50 ML(in water) 2 GM in Premix Bag 1 BAG IVPB SCH (12:00)
[2022-09-06 12:22] LABS: SARS-CoV-2 NAA Rapid Test Not Detected (NotDetected)
[2022-09-06 14:57] VITALS: BMI 45.0
[2022-09-06] MEDS: Carvedilol 6.25 MG TAB PO SCH (16:50)
[2022-09-06] MEDS ORDERED: Atorvastatin Calcium 40 MG TAB PO SCH (21:00)
[2022-09-06] MEDS ORDERED: Lisinopril 10 MG TAB PO SCH (21:00)
[2022-09-07 05:33] LABS: Hemoglobin A1c 10.3 % (4.0-6.0)
[2022-09-07 05:52] LABS: Anion Gap 14 mmol/L (10-20); BUN (Urea Nitrogen) 16 mg/dL (9.8-20.1); Calc. Creatinine Clearance 137 mL/min (70-130); Calcium 9.8 mg/dL (7.8-10.44); Carbon Dioxide 25 mmol/L (22-29); Cardiac Risk 5.1 (Less than 4.5); Chloride 104 mmol/L (98-107); Cholesterol 197 mg/dl (< 200 Desired); Estimated GFR 73; Glucose 240 mg/dL (70-105); HDL Cholesterol 39 mg/dL (>60 Neg Risk); LDL Cholesterol, Calculated 98 mg/dL; Magnesium 2.3 mg/dL (1.6-2.6); Potassium 4.5 mmol/L (3.5-5.1); Sodium 138 mmol/L (136-145); Triglycerides 302 mg/dL (Less than 150)
[2022-09-07 05:54] LABS: Eosinophils 2 % (0-10); Hemoglobin 11.2 g/dL (12.0-16.0); Hypochromia SLIGHT = 6-15 cells (100X) (0-5/hpf); Lymphocytes 40 % (21-51); MDiff Complete? YES; Mean Corpuscular Hemoglobin 29.3 pg (27.0-31.0); Mean Corpuscular Volume 85.9 fl (78.0-98.0); Monocytes 14 % (0-10); Neutrophil 43 % (42-75); Platelet Count 222 10x3/uL (130-400); Platelet Morphology Comment Appears Adequate; RBC Distribution Width 11.7 % (11.5-14.5); Reactive Lymphocytes 1 % (0-10); Red Blood Cell (RBC) Count 3.83 mill/uL (4.20-5.40)
[2022-09-07] MEDS: HumaLOG 300 UNITS/3 ML VIAL SC PRN ×2 (06:06→12:36)
[2022-09-07] MEDS: Carvedilol 6.25 MG TAB PO SCH (08:54)
[2022-09-07] MEDS ORDERED: Aspirin Chewable 81 MG TAB PO SCH (09:00)
[2022-09-07] MEDS ORDERED: Furosemide 40 MG TAB PO SCH (09:00)
[2022-09-07 11:45] VITALS: BP 126/59; TEMP 98.2
[2022-09-07] MEDS ORDERED: HumuLIN 70/30 (300 UNITS/3 ML VIAL) SC SCH (16:30)
== END 2022-09-07 13:08 | disposition home or self-care (01) ==
LOC: ERS 04:14 → ERHOLD 08:22 → 2SW 12:34
PROVIDERS: ADMIT Student in an Organized Health Care Education/Training Program; ATTEND Physician Assistant
DX: R07.89 Other chest pain (principal); I12.9 Hypertensive chronic kidney disease with stage 1 through stage 4 chronic kidney disease, or unspecified chronic kidney disease; E11.22 Type 2 diabetes mellitus with diabetic chronic kidney disease; N18.2 Chronic kidney disease, stage 2 (mild); I50.30 Unspecified diastolic (congestive) heart failure; E78.5 Hyperlipidemia, unspecified; I25.10 Atherosclerotic heart disease of native coronary artery without angina pectoris; K21.9 Gastro-esophageal reflux disease without esophagitis; Z87.891 Personal history of nicotine dependence; Z79.4 Long term (current) use of insulin; Z79.82 Long term (current) use of aspirin; Z79.84 Long term (current) use of oral hypoglycemic drugs; Z79.899 Other long term (current) drug therapy; Z88.5 Allergy status to narcotic agent; Z91.048 Other nonmedicinal substance allergy status; Z95.5 Presence of coronary angioplasty implant and graft; Z20.822 Contact with and (suspected) exposure to COVID-19
CPT/HCPCS: 36415; 36416; 71045; 78452; 80048; 80053; 80061; 81003; 81015; 83036; 83690; 83735; 83880; 84443; 84484; 85025; 93005; 93017; 96374; 96375; 96376; A9500; C9113; G0378; J0153; J1815; J2270; J2272; J2405; J3475; U0002

== ENCOUNTER 2023-06-17 17:05 | Inpatient (IN) | payer SELFPAY ==
[2023-06-17 18:24] LABS: #Basophils 0.1 thou/uL (0.0-0.2); #Monocytes 1.4 thou/uL (0.11-0.59); #Neutrophils 12.1 thou/uL (1.40-6.50); %Basophils 0.3 % (0.0-1.0); %Eosinophils 0.1 % (0.0-10.0); %Lymphocytes 7.9 % (21.0-51.0); %Monocytes 9.3 % (0.0-10.0); Hematocrit 34.3 % (36.0-47.0); Hemoglobin 10.9 g/dL (12.0-16.0); Mean Corpuscular HGB CONC 31.8 g/dL (32.0-36.0); Mean Corpuscular Hemoglobin 25.3 pg (27.0-31.0); Mean Corpuscular Volume 79.8 fl (78.0-98.0); Mean Platelet Volume 12.3 fL (7.4-10.4); Platelet Count 259 10x3/uL (130-400); RBC Distribution Width 14.6 % (11.5-14.5); White Blood Cell (WBC) Count 14.7 10x3/uL (4.8-10.8)
[2023-06-17 18:52] LABS: Troponin I Less than 0.010 ng/mL (< 0.028)
[2023-06-17 18:55] LABS: ALT (SGPT) 29 U/L (8-55); AST (SGOT) 33 U/L (5-34); Albumin 4.6 g/dL (3.5-5.0); Alkaline Phosphatase 77 U/L (40-110); Anion Gap 19 mmol/L (10-20); BUN (Urea Nitrogen) 18 mg/dL (9.8-20.1); Bilirubin, Total 0.7 mg/dL (0.2-1.2); Calc. Creatinine Clearance 0 mL/min (70-130); Calcium 10.4 mg/dL (7.8-10.44); Carbon Dioxide 18 mmol/L (22-29); Chloride 98 mmol/L (98-107); Estimated GFR 45; Glucose 278 mg/dL (70-105); Lipase 20 U/L (8-78); Magnesium 1.3 mg/dL (1.6-2.6); Potassium 4.1 mmol/L (3.5-5.1); Protein, Total 7.6 g/dL (6.0-8.3); Sodium 131 mmol/L (136-145)
[2023-06-17] MEDS ORDERED: Magnesium 2 GM/50 ML BAG (IN WATER) ONE (19:01)
[2023-06-17 19:03] LABS: SARS-CoV-2 NAA Rapid Test Not Detected (NotDetected)
[2023-06-17 21:01] LABS: Bacteria/HPF None Seen HPF (None Seen); Bilirubin Negative (Negative); Blood, Urine Negative (Negative); CAUTI Indications for Culture Pelvic or flank pain; Clarity Clear (Clear); Glucose, Urine (Dipstick) 70 mg/dL (Negative); Ketone, Urine Trace mg/dL (Negative); Leukocyte Negative Leu/uL (Negative); Mucous/LPF Rare LPF (<2+); Nitrite Negative (Negative); Protein, Urine (Dipstick) 10 mg/dL (Neg-Trace); RBC/HPF 0-3 HPF (0-3); Specific Gravity, Urine 1.025 (1.002-1.036); Squamous Epithelial 0-3 HPF (0-3); Urobilinogen Normal mg/dL (Less than 2); WBC/HPF 0-3 HPF (0-3)
[2023-06-17 21:04] LABS: Urine Culture Reflex No No
[2023-06-17 23:43] VITALS: BMI 42.1
[2023-06-18] MEDS ORDERED: Calcium Carbonate 500 MG ChewTAB PO PRN (00:48)
[2023-06-18] MEDS ORDERED: Acetaminophen 325 MG TAB PO PRN (00:48)
[2023-06-18] MEDS ORDERED: Ondansetron ODT 4 MG TAB PO PRN (00:48)
[2023-06-18] MEDS ORDERED: Glucagon 1 MG/ML KIT IM PRN (00:59)
[2023-06-18] MEDS ORDERED: Dextrose 50% Abboject 50 ML SYRINGE SLOW IVP PRN (00:59)
[2023-06-18] MEDS ORDERED: HumaLOG 300 UNITS/3 ML VIAL SC PRN ×2 (00:59)
[2023-06-18] MEDS ORDERED: Dextrose 5% in Water 1,000 ML IV PRN (00:59)
[2023-06-18] MEDS ORDERED: Piperacillin/Tazobactam 3.375 GM in Sodium Chloride 0.9% 100 ML IVPB SCH (01:30)
[2023-06-18] MEDS ORDERED: Lactated Ringer's 500 ML IV SCH (02:00)
[2023-06-18 06:19] LABS: #Monocytes 0.5 thou/uL (0.11-0.59); #Neutrophils 5.6 thou/uL (1.40-6.50); %Basophils 0.5 % (0.0-1.0); %Lymphocytes 20.2 % (21.0-51.0); %Monocytes 6.6 % (0.0-10.0); %Neutrophils 72.2 % (42.0-75.0); Hematocrit 30.3 % (36.0-47.0); Hemoglobin 9.5 g/dL (12.0-16.0); Mean Corpuscular HGB CONC 31.4 g/dL (32.0-36.0); Mean Corpuscular Hemoglobin 24.7 pg (27.0-31.0); Mean Corpuscular Volume 78.9 fl (78.0-98.0); Mean Platelet Volume 12.6 fL (7.4-10.4); Platelet Count 214 10x3/uL (130-400); RBC Distribution Width 14.9 % (11.5-14.5); Red Blood Cell (RBC) Count 3.84 mill/uL (4.20-5.40); White Blood Cell (WBC) Count 7.7 10x3/uL (4.8-10.8)
[2023-06-18 06:28] LABS: Hemoglobin A1c 8.9 % (4.0-6.0)
[2023-06-18] MEDS: Piperacillin/Tazobactam 3.375 GM in Sodium Chloride 0.9% 100 ML IVPB SCH ×3 (06:29→21:55)
[2023-06-18 06:46] LABS: Anion Gap 15 mmol/L (10-20); BUN (Urea Nitrogen) 15 mg/dL (9.8-20.1); Calc. Creatinine Clearance 102 mL/min (70-130); Calcium 9.7 mg/dL (7.8-10.44); Carbon Dioxide 21 mmol/L (22-29); Chloride 102 mmol/L (98-107); Estimated GFR 56; Glucose 252 mg/dL (70-105); Potassium 3.5 mmol/L (3.5-5.1); Sodium 134 mmol/L (136-145)
[2023-06-18] MEDS ORDERED: metFORMIN 500 MG TAB PO SCH (08:00)
[2023-06-18] MEDS: HumuLIN 70/30 100 Unit/ ml 10 ml Vial SC SCH ×2 (08:15→16:34)
[2023-06-18] MEDS: Multivit, Therapeutic 1 TAB PO SCH (08:16)
[2023-06-18] MEDS: Carvedilol 6.25 MG TAB PO SCH ×2 (08:16→16:34)
[2023-06-18] MEDS: Loratadine 10 MG TAB PO SCH (08:17)
[2023-06-18] MEDS: Aspirin Chewable 81 MG TAB PO SCH (08:17)
[2023-06-18] MEDS ORDERED: Famotidine 20 MG TAB PO SCH (09:00)
[2023-06-18] MEDS ORDERED: Acetaminophen 325 MG TAB PO SCH (09:45)
[2023-06-18 15:03] LABS: Campy jejuni + coli by PCR Negative (Negative); STEC Shiga Toxin 1+2 Negative (Negative); Salmonella spp. by PCR POSITIVE (Negative); Shigella spp + EIEC by PCR Negative (Negative)
[2023-06-18] MEDS ORDERED: Atorvastatin Calcium 40 MG TAB PO SCH (21:00)
[2023-06-18] MEDS ORDERED: Fenofibrate Nanocrystallized 145 MG TAB PO SCH (21:00)
[2023-06-18] MEDS ORDERED: Lisinopril 5 MG TAB PO SCH (21:00)
[2023-06-18] MEDS: Famotidine 20 MG TAB PO SCH (21:51)
[2023-06-19 05:29] LABS: Hematocrit 27.6 % (36.0-47.0); Hemoglobin 8.5 g/dL (12.0-16.0); Mean Corpuscular HGB CONC 30.8 g/dL (32.0-36.0); Mean Corpuscular Hemoglobin 24.6 pg (27.0-31.0); Mean Platelet Volume 12.2 fL (7.4-10.4); Platelet Count 172 10x3/uL (130-400); Red Blood Cell (RBC) Count 3.45 mill/uL (4.20-5.40); White Blood Cell (WBC) Count 5.1 10x3/uL (4.8-10.8)
[2023-06-19 05:55] LABS: Anion Gap 12 mmol/L (10-20); BUN (Urea Nitrogen) 10 mg/dL (9.8-20.1); Calc. Creatinine Clearance 123 mL/min (70-130); Calcium 9.9 mg/dL (7.8-10.44); Carbon Dioxide 25 mmol/L (22-29); Chloride 106 mmol/L (98-107); Estimated GFR 70; Glucose 152 mg/dL (70-105); Potassium 3.8 mmol/L (3.5-5.1); Sodium 139 mmol/L (136-145)
[2023-06-19] MEDS: Piperacillin/Tazobactam 3.375 GM in Sodium Chloride 0.9% 100 ML IVPB SCH (05:55)
[2023-06-19] MEDS: Famotidine 20 MG TAB PO SCH (08:10)
[2023-06-19] MEDS: Carvedilol 6.25 MG TAB PO SCH (08:10)
[2023-06-19] MEDS: Multivit, Therapeutic 1 TAB PO SCH (08:10)
[2023-06-19] MEDS: Aspirin Chewable 81 MG TAB PO SCH (08:10)
[2023-06-19] MEDS: Loratadine 10 MG TAB PO SCH (08:10)
[2023-06-19] MEDS: HumuLIN 70/30 100 Unit/ ml 10 ml Vial SC SCH (08:11)
[2023-06-19] MEDS ORDERED: Ciprofloxacin 500 MG TAB PO SCH (09:00)
[2023-06-19 16:22] VITALS: BP 159/83; TEMP 98.1
== END 2023-06-19 16:36 | disposition home or self-care (01) | DRG 872 ==
LOC: ERS 17:05 → T4-A 22:17 → OBSVTOIN 06-18 11:10
PROVIDERS: ADMIT Student in an Organized Health Care Education/Training Program; ATTEND Internal Medicine
PROC: 0T9B70Z Drainage of Bladder with Drainage Device, Via Natural or Artificial Opening (ICD-10-PCS; principal; 2023-06-18)
PROC: 3E03329 Introduction of Other Anti-infective into Peripheral Vein, Percutaneous Approach (ICD-10-PCS; 2023-06-18)
DX: A02.1 Salmonella sepsis (principal); N17.9 Acute kidney failure, unspecified; E87.20 Acidosis, unspecified; Z68.41 Body mass index [BMI] 40.0-44.9, adult; N13.8 Other obstructive and reflux uropathy; A02.0 Salmonella enteritis; I50.32 Chronic diastolic (congestive) heart failure; R33.9 Retention of urine, unspecified; E66.9 Obesity, unspecified; E78.5 Hyperlipidemia, unspecified; K21.9 Gastro-esophageal reflux disease without esophagitis; I11.0 Hypertensive heart disease with heart failure; E78.00 Pure hypercholesterolemia, unspecified; Z20.822 Contact with and (suspected) exposure to COVID-19; E11.65 Type 2 diabetes mellitus with hyperglycemia; Z90.49 Acquired absence of other specified parts of digestive tract; Z95.5 Presence of coronary angioplasty implant and graft; Z88.5 Allergy status to narcotic agent; Z88.8 Allergy status to other drugs, medicaments and biological substances; Z79.899 Other long term (current) drug therapy; Z79.82 Long term (current) use of aspirin; Z79.4 Long term (current) use of insulin; Z79.84 Long term (current) use of oral hypoglycemic drugs
CPT/HCPCS: 36415; 36416; 51702; 71046; 80048; 80053; 81001; 83036; 83605; 83630; 83690; 83735; 83880; 84484; 85025; 85027; 87040; 87324; 87449; 87505; 93005; 96361; 96365; J1815; J2543; J3475; J3490; J7120

== ENCOUNTER 2024-09-02 13:53 | Inpatient (IN) | payer SELFPAY ==
[~2024-09-02 13:53] MED LIST: Iopamidol 370 76% 100 ML VIAL ONE
[2024-09-02] MEDS ORDERED: Nitroglycerin 2% Ointment 1 INCH/1 GM Packet ONE (14:21)
[2024-09-02 14:22] LABS: #Basophils 0.06 10x3/uL (0.0-0.2); %Basophils 0.4 % (0.0-1.0); %Eosinophils 1.5 % (0.0-10.0); %Lymphocytes 18.3 % (21.0-51.0); %Monocytes 6.7 % (0.0-10.0); %Neutrophils 72.7 % (42.0-75.0); Hematocrit 37.8 % (36.0-47.0); Hemoglobin 12.5 g/dL (12.0-16.0); Mean Corpuscular HGB CONC 33.1 g/dL (32.0-36.0); Mean Corpuscular Hemoglobin 27.6 pg (27.0-31.0); Mean Corpuscular Volume 83.4 fL (78.0-98.0); Mean Platelet Volume 11.5 fL (7.4-10.4); Platelet Count 284 10x3/uL (130-400); RBC Distribution Width 14.6 % (11.5-14.5); Red Blood Cell (RBC) Count 4.53 mill/uL (4.20-5.40)
[2024-09-02 14:40] LABS: ALT (SGPT) 50 U/L (8-55); AST (SGOT) 60 U/L (5-34); Alkaline Phosphatase 77 U/L (40-110); Anion Gap 15 mmol/L (10-20); BUN (Urea Nitrogen) 24 mg/dL (9.8-20.1); Bilirubin, Total 0.4 mg/dL (0.2-1.2); Calc. Creatinine Clearance 0 mL/min (70-130); Calcium 10.4 mg/dL (7.8-10.44); Carbon Dioxide 22 mmol/L (22-29); Chloride 104 mmol/L (98-107); Estimated GFR 59; Globulin 3.3 g/dL (2.4-3.5); Glucose 205 mg/dL (70-105); Magnesium 1.8 mg/dL (1.6-2.6); Potassium 4.8 mmol/L (3.5-5.1); Protein, Total 7.3 g/dL (6.0-8.3); Sodium 136 mmol/L (136-145)
[2024-09-02 14:45] LABS: Troponin I Less than 0.010 ng/mL (< 0.028)
[2024-09-02] MEDS ORDERED: Heparin 25,000 units/D5W 500 ML ONE (16:21)
[2024-09-02] MEDS ORDERED: Heparin 5,000 UNITS/ML VIAL ONE (16:21)
[2024-09-02 16:32] LABS: Troponin I 0.127 ng/mL (< 0.028)
[2024-09-02] MEDS ORDERED: Verapamil 5 MG/2 ML VIAL ONE (16:54)
[2024-09-02] MEDS ORDERED: Midazolam HCl 2 mg/2 ml Vial ONE (16:54)
[2024-09-02] MEDS ORDERED: Heparin 10,000 UNITS/ 10 ML VIAL ONE (16:54)
[2024-09-02] MEDS ORDERED: fentaNYL 50 mcg/mL 1 mL Vial ONE ×2 (16:54→17:54)
[2024-09-02] MEDS ORDERED: Nitroglycerin 50 MG/250 ML BOT 0 ML ONE (16:55)
[2024-09-02] MEDS ORDERED: Adenosine 6 mg (2 mL) VIAL ONE (16:59)
[2024-09-02] MEDS ORDERED: niCARdipine 25 MG/10 ML SDV ONE (16:59)
[2024-09-02 17:16] LABS: PTT 22.3 sec (22.9-36.1)
[2024-09-02] MEDS ORDERED: Sodium Chloride 0.9% 200 ML IV PRN (18:07)
[2024-09-02] MEDS ORDERED: Acetaminophen/Codeine 30-300mg Tablet PO PRN ×2 (18:07)
[2024-09-02] MEDS ORDERED: Nitroglycerin 0.4 MG TAB (25 Tab Bottle) SL PRN (18:07)
[2024-09-02] MEDS ORDERED: NOREPINEPHRINE 8 MG/250 ML-D5W 250 ML ONE (18:14)
[2024-09-02] MEDS ORDERED: Ondansetron ODT 4 MG TAB PO PRN (20:33)
[2024-09-02] MEDS ORDERED: Acetaminophen 650 MG Suppository PR PRN (20:33)
[2024-09-02] MEDS ORDERED: Ondansetron PF 4 MG/2 ML Vial IVP PRN (20:33)
[2024-09-02] MEDS: Atorvastatin Calcium 40 MG TAB PO SCH (21:49)
[2024-09-02] MEDS: Famotidine/PF 20 mg/2ml Vial SLOW IVP SCH (21:49)
[2024-09-02] MEDS: Colchicine 0.6 MG TAB PO SCH (21:49)
[2024-09-02] MEDS: Famotidine 20 MG TAB PO SCH (21:49)
[2024-09-02] MEDS: Lisinopril 10 MG TAB PO SCH (21:50)
[2024-09-02] MEDS: Indomethacin 25 mg Capsule PO SCH (21:50)
[2024-09-03] MEDS: Acetaminophen 325 MG TAB PO SCH (01:21)
[2024-09-03] MEDS ORDERED: Glucagon 1 MG/ML KIT IM PRN (02:47)
[2024-09-03] MEDS ORDERED: Dextrose 5% in Water 1,000 ML IV PRN (02:47)
[2024-09-03] MEDS ORDERED: Dextrose 50% Abboject 50 ML SYRINGE SLOW IVP PRN (02:47)
[2024-09-03 04:19] LABS: #Basophils 0.06 10x3/uL (0.0-0.2); %Basophils 0.5 % (0.0-1.0); %Lymphocytes 38.6 % (21.0-51.0); %Monocytes 8.7 % (0.0-10.0); %Neutrophils 49.8 % (42.0-75.0); Hemoglobin 11.2 g/dL (12.0-16.0); Mean Corpuscular Hemoglobin 27.1 pg (27.0-31.0); Mean Corpuscular Volume 84.7 fL (78.0-98.0); Mean Platelet Volume 11.5 fL (7.4-10.4); Platelet Count 265 10x3/uL (130-400); RBC Distribution Width 14.9 % (11.5-14.5); Red Blood Cell (RBC) Count 4.13 mill/uL (4.20-5.40)
[2024-09-03 04:35] LABS: Anion Gap 13 mmol/L (10-20); BUN (Urea Nitrogen) 23 mg/dL (9.8-20.1); Calc. Creatinine Clearance 115 mL/min (70-130); Carbon Dioxide 23 mmol/L (22-29); Chloride 104 mmol/L (98-107); Estimated GFR 69; Glucose 98 mg/dL (70-105); Sodium 136 mmol/L (136-145)
[2024-09-03 04:50] LABS: Hemoglobin A1c 6.9 % (4.0-6.0)
[2024-09-03] MEDS: Colchicine 0.6 MG TAB PO SCH (08:44)
[2024-09-03] MEDS: Pantoprazole 40 MG DR.TAB PO SCH (08:44)
[2024-09-03] MEDS: Aspirin Chewable 81 MG TAB PO SCH (08:45)
[2024-09-03] MEDS: Furosemide 40 MG TAB PO SCH (08:45)
[2024-09-03] MEDS: Carvedilol 6.25 MG TAB PO SCH (08:46)
[2024-09-03] MEDS: Insulin Lispro 100 UNIT/ML 10 ML VIAL SC PRN ×2 (12:20→21:10)
[2024-09-04 04:08] LABS: #Basophils 0.06 10x3/uL (0.0-0.2); %Basophils 0.7 % (0.0-1.0); %Eosinophils 1.6 % (0.0-10.0); %Lymphocytes 49.5 % (21.0-51.0); %Monocytes 10.4 % (0.0-10.0); %Neutrophils 37.5 % (42.0-75.0); Hematocrit 35.4 % (36.0-47.0); Hemoglobin 11.8 g/dL (12.0-16.0); Mean Corpuscular HGB CONC 33.3 g/dL (32.0-36.0); Mean Corpuscular Volume 83.9 fL (78.0-98.0); Mean Platelet Volume 11.6 fL (7.4-10.4); Platelet Count 262 10x3/uL (130-400); RBC Distribution Width 14.5 % (11.5-14.5); Red Blood Cell (RBC) Count 4.22 mill/uL (4.20-5.40)
[2024-09-04 04:24] LABS: Anion Gap 13 mmol/L (10-20); BUN (Urea Nitrogen) 28 mg/dL (9.8-20.1); Calc. Creatinine Clearance 100 mL/min (70-130); Calcium 10.4 mg/dL (7.8-10.44); Carbon Dioxide 25 mmol/L (22-29); Chloride 102 mmol/L (98-107); Estimated GFR 58; Glucose 166 mg/dL (70-105); Potassium 4.1 mmol/L (3.5-5.1); Sodium 136 mmol/L (136-145)
[2024-09-04 04:25] LABS: CRP,High Sensitivity (Inhouse) 0.23 mg/dL (< or = 0.5)
[2024-09-05 04:47] LABS: #Basophils 0.06 10x3/uL (0.0-0.2); %Basophils 0.8 % (0.0-1.0); %Eosinophils 2.4 % (0.0-10.0); %Lymphocytes 49.4 % (21.0-51.0); %Monocytes 10.1 % (0.0-10.0); Hemoglobin 10.8 g/dL (12.0-16.0); Mean Corpuscular HGB CONC 31.8 g/dL (32.0-36.0); Mean Corpuscular Hemoglobin 27.2 pg (27.0-31.0); Mean Corpuscular Volume 85.6 fL (78.0-98.0); Mean Platelet Volume 11.8 fL (7.4-10.4); Platelet Count 242 10x3/uL (130-400); RBC Distribution Width 14.2 % (11.5-14.5); Red Blood Cell (RBC) Count 3.97 mill/uL (4.20-5.40)
[2024-09-05 04:59] LABS: Anion Gap 12 mmol/L (10-20); BUN (Urea Nitrogen) 22 mg/dL (9.8-20.1); Calc. Creatinine Clearance 101 mL/min (70-130); Calcium 9.6 mg/dL (7.8-10.44); Carbon Dioxide 24 mmol/L (22-29); Chloride 108 mmol/L (98-107); Estimated GFR 59; Glucose 200 mg/dL (70-105); Potassium 4.4 mmol/L (3.5-5.1); Sodium 140 mmol/L (136-145)
[2024-09-05 08:54] VITALS: BP 145/68; TEMP 97.5
[2024-09-05] MEDS: FLU (Fluarix Triv) TS24-25(6MOS UP)/PF 45 MCG/0.5 ML Syringe IM ONE (10:01)
[2024-09-06 11:50] LABS: ANA Symphony (Qualitative) Negative (Negative); ANA Symphony (Quantitative) 0.2 Ratio (< 0.7 Negative); dsDNA IgG Antibody 0.6 IU/mL (<10 Negative)
== END 2024-09-05 12:06 | disposition home or self-care (01) | DRG 287 ==
LOC: ERS 13:53 → CCL 17:17 → 2NO 19:37
PROVIDERS: ADMIT Internal Medicine; ATTEND Family Medicine
PROC: 4A023N7 Measurement of Cardiac Sampling and Pressure, Left Heart, Percutaneous Approach (ICD-10-PCS; principal; 2024-09-02)
PROC: B2111ZZ Fluoroscopy of Multiple Coronary Arteries using Low Osmolar Contrast (ICD-10-PCS; 2024-09-02)
DX: I31.9 Disease of pericardium, unspecified (principal); I25.10 Atherosclerotic heart disease of native coronary artery without angina pectoris; E78.5 Hyperlipidemia, unspecified; E11.9 Type 2 diabetes mellitus without complications; I11.0 Hypertensive heart disease with heart failure; I50.9 Heart failure, unspecified; K21.9 Gastro-esophageal reflux disease without esophagitis; Z95.5 Presence of coronary angioplasty implant and graft; Z88.5 Allergy status to narcotic agent; Z91.048 Other nonmedicinal substance allergy status; Z90.49 Acquired absence of other specified parts of digestive tract
CPT/HCPCS: 36415; 36416; 71045; 80048; 80053; 83036; 83735; 83880; 84443; 84484; 85025; 85610; 85730; 86038; 86141; 86225; 93005; 93306; 93458; 94760; 96365; 99152; 99153; C1760; C1769; C1894; J0153; J1644; J1815; J2250; J3010; Q9967

== ENCOUNTER 2024-10-04 12:42 | Observation (INO) | payer SELFPAY ==
[2024-10-04] MEDS ORDERED: Acetaminophen 500 MG TAB ONE (13:10)
[2024-10-04 13:29] LABS: #Basophils 0.09 10x3/uL (0.0-0.2); %Basophils 0.8 % (0.0-1.0); %Eosinophils 1.6 % (0.0-10.0); %Monocytes 9.5 % (0.0-10.0); %Neutrophils 51.7 % (42.0-75.0); Hematocrit 43.6 % (36.0-47.0); Hemoglobin 14.3 g/dL (12.0-16.0); Mean Corpuscular HGB CONC 32.8 g/dL (32.0-36.0); Mean Corpuscular Hemoglobin 27.5 pg (27.0-31.0); Mean Corpuscular Volume 83.8 fL (78.0-98.0); Mean Platelet Volume 11.8 fL (7.4-10.4); Platelet Count 348 10x3/uL (130-400); RBC Distribution Width 14.5 % (11.5-14.5)
[2024-10-04 13:48] LABS: Troponin I Less than 0.010 ng/mL (< 0.028)
[2024-10-04 14:02] LABS: ALT (SGPT) 57 U/L (Less than 34); AST (SGOT) 42 U/L (11-34); Albumin 4.2 g/dL (3.1-4.5); Alkaline Phosphatase 97 U/L (40-110); Anion Gap 20 mmol/L (10-20); BUN (Urea Nitrogen) 28 mg/dL (9.8-20.1); Bilirubin, Total 0.5 mg/dL (0.3-1.2); Calc. Creatinine Clearance 0 mL/min (70-130); Calcium 10.7 mg/dL (7.8-10.44); Carbon Dioxide 19 mmol/L (22-29); Chloride 102 mmol/L (98-107); Estimated GFR 51; Globulin 3.2 g/dL (2.4-3.5); Glucose 155 mg/dL (70-105); Potassium 4.7 mmol/L (3.5-5.1); Protein, Total 7.4 g/dL (6.0-8.3); Sodium 136 mmol/L (136-145)
[2024-10-04] MEDS ORDERED: Ketorolac Tromethamine 30 MG (1 mL) VIAL ONE (14:53)
[2024-10-04 17:02] LABS: Troponin I 0.088 ng/mL (< 0.028)
[2024-10-04] MEDS ORDERED: Aspirin Chewable 81 MG TAB ONE (17:31)
[2024-10-04] MEDS ORDERED: Ondansetron ODT 4 MG TAB PO PRN (18:49)
[2024-10-04] MEDS ORDERED: Acetaminophen 325 MG TAB PO PRN (18:49)
[2024-10-04] MEDS ORDERED: Insulin Lispro 100 UNIT/ML 10 ML VIAL SC PRN ×2 (19:12)
[2024-10-04] MEDS ORDERED: Glucagon 1 MG/ML KIT IM PRN (19:12)
[2024-10-04] MEDS ORDERED: Dextrose 5% in Water 1,000 ML IV PRN (19:12)
[2024-10-04] MEDS ORDERED: Dextrose 50% Abboject 50 ML SYRINGE SLOW IVP PRN (19:12)
[2024-10-04 19:28] LABS: Troponin I 0.183 ng/mL (< 0.028)
[2024-10-04 20:52] VITALS: BMI 33.9
[2024-10-04] MEDS: Lisinopril 10 MG TAB PO SCH (21:20)
[2024-10-04] MEDS: Colchicine 0.6 MG TAB PO SCH (21:20)
[2024-10-04] MEDS: HumuLIN 70/30 100 Unit/ml 10 ml Vial SC SCH (22:07)
[2024-10-04 23:07] LABS: Troponin I 0.361 ng/mL (< 0.028)
[2024-10-05] MEDS: Atorvastatin Calcium 40 MG TAB PO SCH (01:19)
[2024-10-05] MEDS: Carvedilol 6.25 MG TAB PO SCH ×2 (01:38→09:37)
[2024-10-05 02:01] LABS: Troponin I 0.458 ng/mL (< 0.028)
[2024-10-05] MEDS: Enoxaparin 100 MG (1 mL) SYRINGE SC SCH (02:22)
[2024-10-05 04:36] LABS: #Basophils 0.08 10x3/uL (0.0-0.2); %Basophils 0.8 % (0.0-1.0); %Eosinophils 2.2 % (0.0-10.0); %Lymphocytes 55.3 % (21.0-51.0); %Monocytes 11.4 % (0.0-10.0); %Neutrophils 30.1 % (42.0-75.0); Hematocrit 37.5 % (36.0-47.0); Hemoglobin 12.5 g/dL (12.0-16.0); Mean Corpuscular HGB CONC 33.3 g/dL (32.0-36.0); Mean Corpuscular Hemoglobin 28.1 pg (27.0-31.0); Mean Corpuscular Volume 84.3 fL (78.0-98.0); Mean Platelet Volume 11.7 fL (7.4-10.4); Platelet Count 280 10x3/uL (130-400); RBC Distribution Width 14.7 % (11.5-14.5); Red Blood Cell (RBC) Count 4.45 mill/uL (4.20-5.40)
[2024-10-05] MEDS: Lactated Ringer's 1,000 ML IV SCH (04:42)
[2024-10-05 04:53] LABS: ALT (SGPT) 44 U/L (Less than 34); AST (SGOT) 37 U/L (11-34); Albumin 3.6 g/dL (3.1-4.5); Alkaline Phosphatase 97 U/L (40-110); Anion Gap 17 mmol/L (10-20); BUN (Urea Nitrogen) 38 mg/dL (9.8-20.1); Bilirubin, Total 0.3 mg/dL (0.3-1.2); Calc. Creatinine Clearance 69 mL/min (70-130); Calcium 10.4 mg/dL (7.8-10.44); Carbon Dioxide 21 mmol/L (22-29); Chloride 104 mmol/L (98-107); Estimated GFR 46; Glucose 93 mg/dL (70-105); Protein, Total 6.6 g/dL (6.0-8.3); Sodium 138 mmol/L (136-145)
[2024-10-05 05:33] LABS: Troponin I 0.475 ng/mL (< 0.028)
[2024-10-05] MEDS: Aspirin Chewable 81 MG TAB PO SCH (09:37)
[2024-10-05] MEDS: Pantoprazole 40 MG DR.TAB PO SCH (09:37)
[2024-10-05] MEDS: Loratadine 10 MG TAB PO SCH (09:37)
[2024-10-05] MEDS: Furosemide 40 MG TAB PO SCH (09:37)
[2024-10-05] MEDS: metFORMIN 500 MG TAB PO SCH (10:23)
[2024-10-05] MEDS: HumuLIN 70/30 100 Unit/ml 10 ml Vial SC SCH (10:23)
[2024-10-05] MEDS ORDERED: Enoxaparin 100 MG (1 mL) SYRINGE SC SCH ×2 (14:00)
[2024-10-05 15:46] VITALS: TEMP 97.4
[2024-10-05 16:55] VITALS: BP 118/77
[2024-10-05] MEDS ORDERED: Atorvastatin Calcium 40 MG TAB PO SCH ×2 (21:00)
[2024-10-07] MEDS ORDERED: FLU (Fluarix Triv) TS24-25(6MOS UP)/PF 45 MCG/0.5 ML Syringe IM ONE (09:00)
== END 2024-10-05 17:29 | disposition home or self-care (01) ==
LOC: ERS 12:42 → ERHOLD 17:29 → OBS 20:50
PROVIDERS: ADMIT Family Medicine; ATTEND Family Medicine
DX: I21.A1 Myocardial infarction type 2 (principal); I25.10 Atherosclerotic heart disease of native coronary artery without angina pectoris; I11.0 Hypertensive heart disease with heart failure; I50.9 Heart failure, unspecified; E11.9 Type 2 diabetes mellitus without complications; E78.5 Hyperlipidemia, unspecified; K21.9 Gastro-esophageal reflux disease without esophagitis; Z95.5 Presence of coronary angioplasty implant and graft; Z87.891 Personal history of nicotine dependence; Z88.5 Allergy status to narcotic agent; Z79.84 Long term (current) use of oral hypoglycemic drugs; Z79.4 Long term (current) use of insulin; Z79.899 Other long term (current) drug therapy
CPT/HCPCS: 36415; 36416; 71045; 80053; 83880; 84484; 85025; 85379; 93005; 93010; 96374; G0378; J1650; J1885

== ENCOUNTER 2025-05-20 13:09 | Emergency (ER) | payer OTHER, SELFPAY | END 2025-05-20 16:16 | disposition home or self-care (01) | LOC: ERS 13:09 | DX: S42.91XA Fracture of right shoulder girdle, part unspecified, initial encounter for closed fracture (principal); I11.0 Hypertensive heart disease with heart failure; I50.9 Heart failure, unspecified; E11.9 Type 2 diabetes mellitus without complications; E78.00 Pure hypercholesterolemia, unspecified; K21.9 Gastro-esophageal reflux disease without esophagitis; Z87.891 Personal history of nicotine dependence; Z79.84 Long term (current) use of oral hypoglycemic drugs; Z79.82 Long term (current) use of aspirin; Z79.899 Other long term (current) drug therapy; W19.XXXA Unspecified fall, initial encounter | CPT/HCPCS: 99283 ==